=== PATIENT | female | born 1980 | race Caucasian/White ===

== ENCOUNTER 2022-09-11 21:41 | Emergency (ER) | payer OTHER, SELFPAY ==
[2022-09-11 21:43] VITALS: BP 132/83; PULSE 97; RESP 18; TEMP 36.4; O2SAT 97; BMI 33.1
--- NOTE | 2022-09-11 22:08 | EDS_ITS ---
HPI History of Present Illness HPI Narrative: Right index anger laceration cutting vegetables about an hour ago. Unsure last tetanus shot. Chief Complaint: Laceration Informant: patient Occured/Mechanism Mechanism/Context: Yes injury Onset/Context/Timing Onset: Today and Hours Context: Sudden Onset Timing: Continuous Quality of Pain: Sharp Current Severity: Mild Maximum Severity: Mild Associated Symptoms Associated Symptoms: Negative for Parasthesia, Weakness or Loss of Funtion Narrative Narrative: 42-year-old female history of hypothyroidism. [id number]. Was slicing vegetables cut the right index finger at the tip on the radial side about an hour ago. Unsure of her last tetanus shot which will be updated. Tetanus Immunization: Unknown Prior similar symptoms: No Recent Illness/Hospitalization: No PFSH PFSH Home Medications levothyroxine 125 mcg tablet 125 mcg PO DAILY 09/11/22 [History Last Taken Unknown] metoprolol succinate 25 mg tablet,extended release 24 hr 25 mg PO DAILY 09/11/22 [History Last Taken Unknown] Allergy/AdvReac Type Severity Reaction Status Date / Time amoxicillin Allergy Hives Verified 09/11/22 21:42 Gadolinium-MRI Contrast Allergy Hives Verified 09/11/22 21:42 Medium [contrast dye] Social History Smoking Status: Never smoker ROS ROS ED ROS Narrative Denies recent injury. Review of Systems ROS Unobtainable: Denies due to encephalopathy Constitutional Constitutional ED: Denies fever(s) Eyes Eyes: Denies blurry vision ENT ENT ED: Denies ear pain Cardiovascular Cardiovascular: Denies chest pain Respiratory/Chest Respiratory/Chest: Denies cough Gastrointestinal Gastrointestinal: Denies abdominal pain Genitourinary Genitourinary ED: Denies dysuria Musculoskeletal Musculoskeletal: Denies back pain Integumentary Denies abscess Neurologic Neurologic: Denies headache(s) Psychiatric Psychiatric: Denies anxiety Endocrine Endocrinology: Denies cold intolerance Hematologic/Lymphatic Hematologic/Lymphatic: Denies easy bleeding Allergic/Immunologic Allergic/Immunologic ED: Denies mouth swelling or tongue swelling EXAM Physical Exam Narrative Exam Narrative: 42-year-old female no acute distress. Vital signs stable afebrile. HEENT exam unremarkable. Lungs clear. Heart regular rate and rhythm. Right index finger distal tip radial side about a 1 to 2 cm laceration. Involves the very radial side of the nail. Minimal bleeding. No signs of infection or foreign body. Full range of motion. Full flexion-extension. Normal touch sensation. No signs of infection. Const Vital Signs: 09/11/22 21:43 Temperature 97.6 F L Temperature Source Temporal Pulse Rate 97 Respiratory Rate 18 Blood Pressure 132/83 H Blood Pressure Mean 99 Pulse Ox 97 Oxygen Delivery Method Room Air Positive well developed; Negative for obese, cachectic, contractures or unkempt General Appearance ED: well developed and NAD; Negative for unkempt, cachectic, contractures, cyanotic or diaphoretic Nutritional Appearance: Negative for cachectic or obese HEENT Reports moist mucous membranes normocephalic and atraumatic; Negative for trauma or tenderness Eyes EOMs intact bilaterally; Negative for PERRL General Eye ED: Negative for other Neck full ROM and supple General: Negative for tenderness Lymph Lymphatic: Negative for other Chest Wall inspection of chest normal and palpation of chest normal Resp normal respiratory effort and clear to auscultation bilaterally Effort and Inspection: Negative for pain with movement Auscultation: Negative for rales, rhonchi or wheezes Cardio regular rate, regular rhythm, S1 normal heart sound, S2 normal heart sound and no murmurs Rate: Negative for bradycardia or tachycardic Rhythm: Negative for abnormal rhythm GI non-tender, non-distended and no masses Inspection: Negative for abdominal distention Auscultation: normoactive bowel sounds Palpation: soft; Negative for tender Extremity normal to inspection and full ROM Extremity Narrative: Except 1 to centimeter laceration right index finger distal tip radial side. Neuro oriented x3, CN's II-XII intact bilaterally, moves all extremities, no focal motor deficits and no sensory deficits noted Sensorium / Orientation: alert, oriented to person, oriented to place and oriented to time; Negative for orientation impaired, lethargic or stuporous Motor Exam: strength 5/5 throughout Psych mental status grossly normal Appearance: Negative for unkempt Attitude: No agitated Mood & Affect: Negative for depressed, anxious or tearful Skin General Skin Exam: Negative for petechiae Lesions: no lesions Rashes: no rashes Trauma: laceration; Negative for no lacerations or abrasions or abrasion MDM MDM MDM Narrative Medical decision making narrative: 42-year-old [id number] female by an hour ago because laceration right index finger. Wound to be clean. Explored. Closed using Dermabond and Steri- Strips. Discharged home with wound care instructions. Discharge Plan Triage Chief Complaint: Laceration ED Provider: Jeff Prado Dx/Rx/DC Orders Clinical Impression: Laceration of right index finger Instructions: ED Laceration, Hand: All Closures Prescriptions: No Action levothyroxine 125 mcg tablet 125 mcg PO DAILY Label Comments: TAKE 1/2 TABLET ON SAT AND 1 TAB ALL OTHER DAYS. TAKE ON EMPTY STOMACH. FOR THYROID metoprolol succinate 25 mg tablet extended release 24 hr 25 mg PO DAILY Label Comments: TAKE 1 TABLET BY MOUTH EVERY DAY Primary Care Provider: Laura Love Referrals: Laura Love MD [Primary Care Provider] - As Needed Activity Restrictions/Additional Instructions: Dermabond and Steri-Strips will eventually come off. If not off in 7 to 10 days you can take them off. Watch for any signs of infection such as redness, pus, streaks, swelling or fever if seen have reevaluated. Disposition Disposition: Home, Self Care
[2022-09-11] MEDS: Diphth,Pertuss(Acell),Tet Vac 0.5 ML Vial IM (22:22)
== END 2022-09-11 22:49 | disposition home or self-care (01) ==
PROVIDERS: Emergency Provider Emergency Medicine; PCP Internal Medicine; Visit Provider Emergency Medicine
DX: S61.210A Laceration without foreign body of right index finger without damage to nail, initial encounter (principal); Z23 Encounter for immunization; W26.0XXA Contact with knife, initial encounter; Y93.G3 Activity, cooking and baking
CPT/HCPCS: 12001; 90471; 90715; 99282